=== PATIENT | male | born 1975 ===

== ENCOUNTER → 2021-05-20 | Outpatient (CLI) | payer OTHER ==
[2021-05-20 08:34] LABS: Hematocrit 54.5 % (37.0-53.0); Hemoglobin 18.8 g/dL (13.5-17.5); Mean Corpuscular HGB 31.4 pg (26.0-34.0); Mean Corpuscular HGB Conc 34.5 g/dL (31.5-36.5); Mean Corpuscular Volume 91 fL (80-100); Mean Platelet Volume 9.9 fL (9.1-12.4); Platelet Count 267 K/mm3 (150-400); RDW Coefficient Variation 12.4 % (11.7-14.2); RDW Standard Deviation 41.2 fL (35.1-46.3); Red Blood Cell Count 5.98 M/mm3 (4.30-5.90); White Blood Cell Count 5.38 K/mm3 (4.00-11.30)
== END | disposition home or self-care (01) ==
LOC: LAB SHORT 07:35
PROVIDERS: Nurse Practitioner
DX: R53.83 Other fatigue (principal); R71.8 Other abnormality of red blood cells
CPT/HCPCS: 85027

== ENCOUNTER → 2022-03-08 | Outpatient (CLI) | payer OTHER ==
[2022-03-09 10:44] LABS: Hematocrit 49.9 % (37.0-53.0); Hemoglobin 16.4 g/dL (13.5-17.5); Mean Corpuscular HGB Conc 32.9 g/dL (31.5-36.5); Mean Corpuscular Volume 94 fL (80-100); Mean Platelet Volume 10.3 fL (9.1-12.4); Platelet Count 288 K/mm3 (150-400); RDW Coefficient Variation 12.6 % (11.7-14.2); RDW Standard Deviation 43.7 fL (35.1-46.3); Red Blood Cell Count 5.29 M/mm3 (4.30-5.90); White Blood Cell Count 5.24 K/mm3 (4.00-11.30)
== END ==
LOC: LAB 07:10 → LAB SHORT 07:10
PROVIDERS: Nurse Practitioner Family
DX: I10 Essential (primary) hypertension (principal); R71.8 Other abnormality of red blood cells; N52.9 Male erectile dysfunction, unspecified; E78.49 Other hyperlipidemia; E55.9 Vitamin D deficiency, unspecified; Z79.890 Hormone replacement therapy
CPT/HCPCS: 85027